=== PATIENT | female | born 1955 | race Caucasian/White ===

== ENCOUNTER 2018-10-12 22:44 | Emergency (ER) | payer BC, MEDICARE ==
[2018-10-12 23:17] VITALS: BP 110/59
--- NOTE | 2018-10-12 23:40 | RADIOLOGY REPORT (SQ) ---
EXAM DESCRIPTION: XR FOOT 3 OR MORE VIEWS COMPLETED DATE/TME: 10/12/2018 00:00 CLINICAL HISTORY: 63 years, Female, injury COMPARISON: None. NUMBER OF VIEWS: 3 TECHNIQUE: 3 view right foot LIMITATIONS: None. FINDINGS: Small calcaneal spurs. Negative for acute fracture or dislocation. IMPRESSION: No acute osseous abnormality 2010 [facility] [employer]- All Rights Reserved
[2018-10-13] MEDS ORDERED: ACETAMINOPHEN 325 MG TABLET PO ONE (01:03)
[2018-10-13] MEDS ORDERED: IBUPROFEN 600 MG TABLET PO ONE (01:03)
--- NOTE | 2018-10-13 01:03 | ER Document Report ---
ED General - General Chief Complaint: Foot Injury Stated Complaint: TOE INJURY Time Seen by Provider: 10/13/18 00:42 Notes: Patient is a 63-year-old female who presents emergency department after dropping a Marcia tree bar on her left foot. She said the area is sore. She did take Percocet that she got from her sister at home. She states walking on it makes the pain worse and resting makes the pain better. Percocet did not really help her all that much. She denies any blood thinners. Her only medical history includes hypertension medication. TRAVEL OUTSIDE OF THE [place] IN LAST 30 DAYS: No - Related Data Allergies/Adverse Reactions: Penicillins Allergy (Verified 10/13/18 01:10) Sulfa (Sulfonamide Antibiotics) Allergy (Verified 10/13/18 01:10) Past Medical History - Social History Smoking Status: Current Every Day Smoker Frequency of alcohol use: Rare Drug Abuse: None Lives with: Family Family History: Reviewed & Not Pertinent Review of Systems - Review of Systems Notes: REVIEW OF SYSTEMS: CONSTITUTIONAL : Denies recent illness. Denies recent unintentional weight loss. Denies fever, chills, or sweats. EENT: Denies eye, ear, throat, or mouth pain, discharge, or symptoms. Denies nasal or sinus congestion. CARDIOVASCULAR: Denies chest pain. RESPIRATORY: Denies shortness of breath, cough, congestion, difficulty breathing , or wheezing. GASTROINTESTINAL: Denies nausea, vomiting, and diarrhea. Denies abdominal pain. Denies constipation. GENITOURINARY: Denies difficulty urinating, burning, blood in urine, urgency or frequency. MUSCULOSKELETAL: See HPI SKIN: Denies rash, itchiness, or lesions HEMATOLOGIC : Denies easy bruising or bleeding. LYMPHATIC: Denies swollen, painful, enlarged glands. NEUROLOGICAL: Denies no numbness or tingling denies weakness. Denies headache. Denies altered mental status. Denies alteration in speech. PSYCHIATRIC: Denies stress, anxiety, alteration in sleep patterns, or depression. All other systems reviewed and negative. Physical Exam - Vital signs Vitals: Temp Pulse Resp BP Pulse Ox 97.8 F 78 20 110/59 L 96 10/12/18 23:14 10/12/18 23:14 10/12/18 23:14 10/12/18 23:14 10/12/18 23:14 - Notes Notes: PHYSICAL EXAMINATION: GENERAL: Appears well, healthy, well-nourished, no acute distress. HEAD: Normocephalic, atraumatic. EYES: PERRL, conjunctiva normal, all extraocular movements intact, sclera nonicteric ENT: Moist mucous membranes. NECK: Supple, no noticeable swelling, redness, rash. Normal range of motion. LUNGS: Equal breath sounds bilaterally and clear to auscultation. No wheezes rales or rhonchi. CARDIOVASCULAR: S1-S2, regular rate, regular rhythm. Radial pulses 2+, normal. ABDOMEN: Normoactive bowel sounds. Soft, nontender, no guarding, no rebound tenderness, and no masses palpated. EXTREMITIES: Patient is able to wiggle toes and press against resistance. Slight decreased range of motion to right foot. Mild ecchymosis noted to the dorsal and lateral aspect of right foot. No cyanosis. NEUROLOGICAL: Moves all extremities upon command. Strength 5/5 in all extremities. PSYCH: Normal mood, normal affect. SKIN: Warm, dry. No rash, lesions, ulcerations noted. Normal skin turgor. Course - Re-evaluation Re-evalutation: Patient's x-ray is negative. I do not suspect patient has any fractures at this time. She will be sent home on Motrin and Tylenol for pain control. She will also be sent home with a postop shoe for comfort. She refused crutches. Verbal discharge instructions were given to the patient, she verbalized understanding, and she is safe for discharge. - Vital Signs Vital signs: Temp Pulse Resp BP Pulse Ox 97.8 F 78 20 110/59 L 96 10/12/18 23:14 10/12/18 23:14 10/12/18 23:14 10/12/18 23:14 10/12/18 23:14 Discharge - Discharge Clinical Impression: Right foot pain Condition: Stable Disposition: HOME, SELF-CARE Additional Instructions: You have been seen in the emergency department for right foot pain. There is no fracture in your foot at this time. You most likely bruised the area from the bar that was dropped on your foot. You can take Motrin 600 mg and Tylenol 1000 mg as needed for the pain. You have also been sent home with extra pain medication, if you decide to take this medication do not take your Tylenol. You have also been sent home with a postop shoe to help with comfort. You may apply ice 20 minutes on 20 minutes off to help with the pain. Please elevate your foot and rest it. If you have worsening symptoms, or have any concerns that are worrisome to you, please return to the emergency department or follow- up with your primary care doctor.
[2018-10-13] MEDS ORDERED: HYDROCODONE/ACETAMINOPHEN 5-325 MG (6 TAB/ER DISP) PO PRN (01:07)
== END 2018-10-13 01:30 | disposition home or self-care (01) ==
LOC: ER 22:44
DX: S90.31XA Contusion of right foot, initial encounter (principal); M79.671 Pain in right foot; W20.8XXA Other cause of strike by thrown, projected or falling object, initial encounter; I10 Essential (primary) hypertension; Z79.899 Other long term (current) drug therapy; Z88.0 Allergy status to penicillin; Z88.2 Allergy status to sulfonamides
CPT/HCPCS: 99283; 73630; A9270 ×3

== ENCOUNTER 2019-07-14 08:34 | Emergency (ER) | payer MEDICARE, OTHER ==
[2019-07-14] MEDS ORDERED: LIDOCAINE 5% (700 MG) TRANSDERMAL ADH..PATCH TP ONE (09:15)
--- NOTE | 2019-07-14 09:20 | ER Document Report ---
HPI - HPI Time Seen by Provider: 07/14/19 09:07 Pain Level: 5 Context: Patient is a 64-year-old female presents to the emergency department with a chief complaint of right shoulder pain. Patient reports that over the past week she has been lifting the high in length of her dog as she is disabled. Patient reports that on Friday her dog was unable to bear any weight or stand on her own so she had to lift her and take her to the vet. Patient reports that at that ti me she noticed a snap come from her shoulder. Patient states her dogs weighs about 30 pounds. Patient reports it feels like an aching, throbbing that is worse with movement. Patient reports that she is having pain to the posterior right shoulder that radiates underneath the right axilla. Patient states she started using Robaxin yesterday with ibuprofen, Tylenol and cool compresses without relief. Patient reports in 1990 she did have a shoulder surgery with a had to rebuild pain muscle to the right shoulder. Patient denies numbness or tingling down the right arm. - CONSTITUTIONAL Constitutional: DENIES: Fever, Chills - MUSCULOSKELETAL Musculoskeletal: REPORTS: Extremity pain - R shoulder Past Medical History - General Information source: Patient - Social History Smoking Status: Current Every Day Smoker Frequency of alcohol use: None Drug Abuse: None Lives with: Family Family History: Reviewed & Not Pertinent Patient has suicidal ideation: No Patient has homicidal ideation: No - Past Medical History Cardiac Medical History: Reports: Hx Hypertension Pulmonary Medical History: Reports: None EENT Medical History: Reports: None Neurological Medical History: Reports: None Endocrine Medical History: Reports: None Renal/ Medical History: Reports: None. Denies: Hx Peritoneal Dialysis Malignancy Medical History: Reports: None GI Medical History: Reports: None Musculoskeletal Medical History: Reports None Skin Medical History: Reports None Psychiatric Medical History: Reports: None Traumatic Medical History: Reports: None Infectious Medical History: Reports: None Past Surgical History: Reports: Hx Orthopedic Surgery - R and L shoulder Vertical Provider Document - CONSTITUTIONAL Agree With Documented VS: Yes Exam Limitations: No Limitations General Appearance: No Apparent Distress - INFECTION CONTROL TRAVEL OUTSIDE OF THE [place] IN LAST 30 DAYS: No - HEENT HEENT: Atraumatic, Normocephalic, PERRLA - RESPIRATORY Respiratory: Breath Sounds Normal, No Respiratory Distress - CARDIOVASCULAR Cardiovascular: Regular Rate, Regular Rhythm - GI/ABDOMEN Gastrointestinal: Abdomen Soft, Abdomen Non-Tender, Normal Bowel Sounds - Sugar comments and iron - BACK Back: Normal Inspection - MUSCULOSKELETAL/EXTREMETIES Musculoskeletal/Extremeties: Tender, No Edema Notes: Patient has tenderness noted over the right scapula and right posterior shoulder. Patient is able to lift her right arm to the level of the right shoulder. Patient has a strong +2 right radial and brachial pulse. Patient has a strong data entry processor to the right hand and is able to make a fist. There is no tenderness noted to the inferior, lateral or anterior shoulder. There is no edema, ecchymosis, erythema noted. Tenderness noted with palpation underneath the right axilla and right lateral chest wall. - NEURO Level of Consciousness: Awake, Alert, Appropriate - DERM Integumentary: Warm, Dry, No Rash Course - Re-evaluation Re-evalutation: 07/14/19 09:20 Patient is driving. I will apply a lidocaine patch as well as a prescription for lidocaine. Patient to continue Robaxin and ibuprofen. Will obtain an x-ray to rule out any bony abnormality or dislocation. Ultimately I did tell the patient she may have to follow-up with orthopedics if her pain does not improve within the next week. - Vital Signs Vital signs: Temp Pulse Resp BP Pulse Ox 98.2 F 75 24 H 146/75 H 98 07/14/19 08:39 07/14/19 08:39 07/14/19 08:39 07/14/19 08:39 07/14/19 08:39 - Diagnostic Test Radiology reviewed: Reports reviewed Radiology results interpreted by me: 07/14/19 09:43 Shoulder X-Ray 07/14/19 09:15 IMPRESSION: NEGATIVE STUDY OF THE RIGHT SHOULDER. NO RADIOGRAPHIC EVIDENCE OF ACUTE INJURY. Discharge - Discharge Clinical Impression: Right shoulder pain Qualifiers: Chronicity: acute Qualified Code(s): M25.511 - Pain in right shoulder Right shoulder injury Qualifiers: Encounter type: initial encounter Qualified Code(s): S49.91XA - Unspecified injury of right shoulder and upper arm, initial encounter Condition: Stable Disposition: HOME, SELF-CARE Additional Instructions: Today you are seen the emergency department for right shoulder pain after an injury carrying her dog. We did obtain an x-ray which was negative for any acute bony abnormality to include dislocation and fracture. Usually this injury is from stretching and tearing of tendon strain trauma. Time and protection are required and order to heal properly. This can take a few weeks. Initial treatment includes cold compresses. Continue to use the Robaxin that your doctor has prescribed you as well as ibuprofen which is a good anti- inflammatory. I am giving you a prescription for lidocaine patches. If you do not feel better within the next few weeks I have given you referrals to multiple orthopedics in the area as you may have a more serious injury such as a rotator cuff injury. Please return to the emergency department if you develop severe pain, numbness down the right arm or loss of function. Shoulder Injury You have injured your shoulder. This usually results from stretching or tearing of the tendons during trauma. Time and protection are required in order to heal properly. Many injuries are quite disabling, and should be taken seriously. Initial treatment includes cold packs and a sling to rest the shoulder. The physician has assessed the seriousness of your injury, and has outlined a treatment plan. Understand that this treatment may change, depending on how you progress. If a re-examination was recommended, it is important that you follow up as instructed. Some shoulder injuries (such as partial tear of the rotator cuff) are only suspected after you've failed to improve. Call us if there's severe pain, numbness, or loss of function. Prescriptions: Lidocaine [Lidoderm 5% (700 mg) Transdermal Patch] 1 patch TP DAILY #10 adh..patch Forms: Return to Work Referrals: [facility] [Provider Group] - Follow up as needed CLEO CARLSON MD [ACTIVE PROVISIONAL STAFF] - Follow up as needed
--- NOTE | 2019-07-14 09:37 | RADIOLOGY REPORT (SQ) ---
EXAM DESCRIPTION: SHOULDER RIGHT 2 OR MORE VIEWS COMPLETED DATE/TIME: 07/14/2019 9:29 am REASON FOR STUDY: lifting dog injured right shoulder COMPARISON: None. NUMBER OF VIEWS: Three views. TECHNIQUE: Internal rotation, external rotation, and Y view images acquired of the right shoulder. LIMITATIONS: None. FINDINGS: MINERALIZATION: Normal. BONES: No acute fracture. No worrisome bone lesions. JOINTS: No dislocation. VISUALIZED LUNGS AND RIBS: No pneumothorax. No rib fracture. SOFT TISSUES: No radiopaque foreign body. OTHER: No other significant finding. IMPRESSION: NEGATIVE STUDY OF THE RIGHT SHOULDER. NO RADIOGRAPHIC EVIDENCE OF ACUTE INJURY. TECHNICAL DOCUMENTATION: JOB ID: [id number] [employer]- All Rights Reserved Reading location - IP/workstation name: [email or web address]
[2019-07-14 10:09] VITALS: BP 136/70
== END 2019-07-14 10:07 | disposition home or self-care (01) ==
LOC: ER 08:34
DX: S49.91XA Unspecified injury of right shoulder and upper arm, initial encounter (principal); M25.511 Pain in right shoulder; M79.601 Pain in right arm; X58.XXXA Exposure to other specified factors, initial encounter; Z79.899 Other long term (current) drug therapy; F17.200 Nicotine dependence, unspecified, uncomplicated; I10 Essential (primary) hypertension
CPT/HCPCS: 99283

== ENCOUNTER → 2019-07-29 | Outpatient (CLI) | payer MEDICARE, OTHER ==
[2019-07-29 10:27] LABS: ABSOLUTE BASOPHILS # (AUTO) 0.1 10^3/uL (0.0-0.2); ABSOLUTE EOSINOPHILS # (AUTO) 0.1 10^3/uL (0.0-0.6); ABSOLUTE LYMPHOCYTES (AUTO) 2.5 10^3/uL (0.5-4.7); ABSOLUTE MONOCYTES (AUTO) 0.7 10^3/uL (0.1-1.4); ABSOLUTE NEUT (AUTO) 6.1 10^3/uL (1.7-8.2); BASOPHILS % (AUTO) 0.7 % (0-2); HEMATOCRIT 38.4 % (36.0-47.0); LYMPHOCYTES % (AUTO) 26.1 % (13-45); MEAN CORPUSCULAR HEMOGLOBIN 33.7 pg (27.0-33.4); MEAN CORPUSCULAR HGB CONC 33.8 g/dL (32.0-36.0); MEAN CORPUSCULAR VOLUME 100 fl (80-97); MONOCYTES % (AUTO) 7.5 % (3-13); PLATELET COUNT 377 10^3/uL (150-450); RED BLOOD COUNT 3.84 10^6/uL (3.72-5.28); RED CELL DISTRIBUTION WIDTH 13.5 % (11.5-14.0); SEGMENTED NEUTROPHILS % (AUTO) 64.7 % (42-78); TOTAL CELLS COUNTED % (AUTO) 100 %; WHITE BLOOD COUNT 9.4 10^3/uL (4.0-10.5)
[2019-07-29 10:46] LABS: APPEARANCE,URINE CLEAR; BILIRUBIN,URINE NEGATIVE (NEGATIVE); COLOR,URINE YELLOW; GLUCOSE, URINE NEGATIVE (NEGATIVE); KETONES,URINE NEGATIVE (NEGATIVE); LEUKOCYTE ESTERASE,URINE NEGATIVE (NEGATIVE); NITRITE,URINE NEGATIVE (NEGATIVE); PROTEIN,URINE NEGATIVE (NEGATIVE); URINE SPECIFIC GRAVITY 1.017; UROBILINOGEN,URINE NEGATIVE mg/dL (<2.0)
[2019-07-29 10:48] LABS: ADD MANUAL MICROSCOPIC YES
[2019-07-29 10:52] LABS: ANION GAP 8 (5-19); BLOOD UREA NITROGEN 21 mg/dL (7-20); CALCIUM 9.3 mg/dL (8.4-10.2); CARBON DIOXIDE 29 mmol/L (22-30); CHLORIDE 103 mmol/L (98-107); GLUCOSE 80 mg/dL (75-110)
[2019-07-29 11:19] LABS: BACTERIA,URINE 2+ /HPF; RBC,URINE 0-1 /HPF; WBC,URINE 0-1 /HPF
--- NOTE | 2019-07-29 11:40 | RADIOLOGY REPORT (SQ) ---
EXAM DESCRIPTION: CHEST PA/LATERAL COMPLETED DATE/TIME: 07/29/2019 10:06 am REASON FOR STUDY: PRE-OP COMPARISON: None. EXAM PARAMETERS: NUMBER OF VIEWS: two views TECHNIQUE: Digital Frontal and Lateral radiographic views of the chest acquired. RADIATION DOSE: NA LIMITATIONS: none FINDINGS: LUNGS AND PLEURA: No opacities, masses or pneumothorax. No pleural effusion. MEDIASTINUM AND HILAR STRUCTURES: No masses or contour abnormalities. HEART AND VASCULAR STRUCTURES: Heart normal size. No evidence for failure. BONES: No acute findings. HARDWARE: None in the chest. OTHER: No other significant finding. IMPRESSION: NO SIGNIFICANT RADIOGRAPHIC FINDING IN THE CHEST. TECHNICAL DOCUMENTATION: JOB ID: [id number] [employer]- All Rights Reserved Reading location - IP/workstation name: [email or web address]
--- NOTE | 2019-07-30 08:55 | EKG REPORT ---
SEVERITY:- BORDERLINE ECG - SINUS RHYTHM PROBABLE LEFT ATRIAL ABNORMALITY : Confirmed by: Reva Reinoso MD 30-Jul-2019 08:54:03
== END ==
LOC: OD 09:31
PROVIDERS: ATTEND Orthopaedic Surgery
DX: M16.11 Unilateral primary osteoarthritis, right hip (principal); I10 Essential (primary) hypertension
CPT/HCPCS: 36415; 71046; 80048; 81001; 85025; 93005; 93010

== ENCOUNTER 2019-08-23 08:07 | Inpatient (IN) | payer MEDICARE, OTHER ==
[~2019-08-23 08:07] MED LIST: BUPIVACAINE INJ/PF LIPOSOME/PF 266 MG/20 ML SDV INJ PRN; CEFAZOLIN INJ 1 GM VIAL IV PRN; CLINDAMYCIN 600 MG/D5W RTU 600 MG/50 ML RTUPB IV ONE; IBUPROFEN 800 MG in NORMAL SALINE 250 ML IV PRN; LACTATED RINGERS 1000 ML IV PRN; OXYCODONE HCL SR 10 MG TABLET PO ONE; OXYCODONE HCL SR 10 MG TABLET PO PRN; PANTOPRAZOLE SODIUM 20 MG TABLET.DR PO ONE; PANTOPRAZOLE SODIUM 20 MG TABLET.DR PO PRN; VANCOMYCIN HCL 1,000 MG in DEXTROSE 5%-WATER 250 ML IV PRN
[2019-08-23] MEDS ORDERED: ONDANSETRON HCL INJ/PF 4 MG/2 ML SDV ONE (08:11)
[2019-08-23] MEDS ORDERED: FENTANYL CITRATE INJ/PF 100 MCG/2 ML AMPUL ONE (08:11)
[2019-08-23] MEDS ORDERED: MIDAZOLAM 2 MG/2 ML INJ ONE (08:11)
[2019-08-23] MEDS ORDERED: TRANEXAMIC ACID INJ/PF 1,000 MG/10 ML SDV ONE ×2 (08:12→14:52)
[2019-08-23] MEDS ORDERED: PROPOFOL INJ 200 MG/20 ML VIAL IV ONE (08:12)
[2019-08-23] MEDS: BUPIVACAINE HCL 0.5%-EPI 1:200000 INJ/PF 30 ML VIAL ONE ×2 (10:48→12:38)
[2019-08-23] MEDS ORDERED: FENTANYL CITRATE INJ/PF 100 MCG/2 ML AMPUL IV PRN ×3 (12:36)
[2019-08-23] MEDS ORDERED: MEPERIDINE HCL/PF INJ 25 MG/1 ML DISP.SYRIN IV PRN (12:36)
[2019-08-23] MEDS ORDERED: ONDANSETRON HCL INJ/PF 4 MG/2 ML SDV IV PRN ×2 (12:36→13:03)
[2019-08-23] MEDS ORDERED: MORPHINE SULFATE 10 MG/ML INJ IV PRN (12:36)
[2019-08-23] MEDS ORDERED: DIPHENHYDRAMINE HCL 50 MG/ML VIAL IV PRN ×2 (12:36→13:03)
--- NOTE | 2019-08-23 13:02 | Operative Report ---
Operative Report DATE OF SURGERY: 08/23/19 PREOPERATIVE DIAGNOSIS: Right hip arthritis OPERATION: Right hip arthroplasty SURGEON: LEXI MONTILLA ANESTHESIA: Spinal TISSUE REMOVED OR ALTERED: Femoral head to pathology ESTIMATED BLOOD LOSS: 75 PROCEDURE: Implants used: Femur: Peter Accolade 2 stem, size 5 Acetabular shell: 52 mm hemispherical shell Liner: 36 mm flat cross-link polyethylene liner Head: 86 mm chrome cobalt head -5 neck The patient is placed in a left lateral decubitus position on the operating table. The right lower extremity and hindquarter is prepped and draped in a sterile fashion. A curvilinear incision was made over the greater trochanter a posterior approach the hip was taken. The femoral head is dislocated and the femoral neck transected using an oscillating saw. Attention was next turned to the acetabulum. Soft tissues cleared off the acetabulum using electrocautery. The acetabulum was then prepared using a series of hemispherical reamers until a 52 millimeters reamer is seated. Subsequently a T2 millimeters Peter titanium hemispherical shell is impacted into position. A standard flat 36 millimeters cross-link liner is impacted into the shell. Attention was next turned to the femur. Access is gained to the femoral canal using a box osteotome to the piriformis fossa. The femur is then prepared using a series of broaches until a number 5 broach is seated. A trial reduction was now performed using a 36 millimeters head with -5 neck. Preoperative leg length was recreated and is excellent anterior posterior stability. A decision was made to proceed with the above construct. All trial implants were removed. The wound is irrigated with pulsed lavage. A number 5 stem is impacted into the femoral canal. A trial reduction was again performed with a 36 mm head and a -5 neck. Findings as previously. The hip was dislocated one last time and the final chrome-cobalt head is impacted onto the trunnion. The hip was reduced. Wound is copiously irrigated with pulsed lavage. Sent closed in layers using interrupted Vicryl followed by lou. A sterile dressing is applied and the patient's returned to recovery room in satisfactory patient.
[2019-08-23] MEDS ORDERED: RINGERS SOLUTION,LACTATED 1,000 ML IV PRN (13:03)
[2019-08-23] MEDS ORDERED: MAG HYDROX/AL HYDROX/SIMETH SUSP 30 ML UDCUP PO PRN (13:03)
[2019-08-23] MEDS ORDERED: ACETAMINOPHEN 325 MG TABLET PO PRN (13:03)
[2019-08-23] MEDS ORDERED: ZOLPIDEM TARTRATE 5 MG TABLET PO PRN (13:03)
[2019-08-23] MEDS ORDERED: ONDANSETRON 4 MG TAB.RAPDIS PO PRN (13:03)
--- NOTE | 2019-08-23 14:21 | RADIOLOGY REPORT (SQ) ---
EXAM DESCRIPTION: PELVIS AP COMPLETED DATE/TIME: 08/23/2019 2:07 pm REASON FOR STUDY: Post Op Long Cassette in PACU M16.11 UNILATERAL PRIMARY OSTEOARTHRITIS, RIGHT HI P COMPARISON: None. NUMBER OF VIEWS: One view TECHNIQUE: AP Pelvis LIMITATIONS: None. FINDINGS: Postop images show a right hip arthroplasty in good position. IMPRESSION: Right hip arthroplasty. Refer to operative note for further information. COMMENT: Pelvic fractures are often occult on plain radiographs. If strong clinical suspicion for f racture, recommend CT or MR. TECHNICAL DOCUMENTATION: JOB ID: [id number] [employer]- All Rights Reserved Reading location - IP/workstation name: [email or web address]
[2019-08-23] MEDS: SENNOSIDES/DOCUSATE 8.6-50 MG 1 EACH TABLET PO SCH (17:42)
[2019-08-23] MEDS: OXYCODONE HCL IR 5 MG TABLET PO PRN (17:52)
[2019-08-23] MEDS ORDERED: PREGABALIN 75 MG CAPSULE PO SCH (18:00)
[2019-08-23] MEDS: IBUPROFEN 800 MG in NORMAL SALINE 250 ML IV SCH (18:32)
[2019-08-23] MEDS: OXYCODONE HCL SR 10 MG TABLET PO SCH (21:40)
[2019-08-23] MEDS ORDERED: ROPINIROLE HCL 1 MG TABLET PO ONE (23:00)
[2019-08-23] MEDS ORDERED: GABAPENTIN 100 MG CAPSULE PO ONE (23:00)
[2019-08-23] MEDS: ROPINIROLE HCL 1 MG TABLET PO SCH (23:30)
[2019-08-24] MEDS ORDERED: VANCOMYCIN HCL 1,000 MG in DEXTROSE 5%-WATER 250 ML IV ONE (01:00)
[2019-08-24] MEDS: OXYCODONE HCL IR 5 MG TABLET PO PRN (01:02)
[2019-08-24] MEDS: IBUPROFEN 800 MG in NORMAL SALINE 250 ML IV SCH ×3 (01:03→18:48)
[2019-08-24] MEDS ORDERED: PANTOPRAZOLE SODIUM 40 MG TABLET.DR PO SCH (06:00)
[2019-08-24 06:58] LABS: HEMATOCRIT 35.4 % (36.0-47.0); HEMOGLOBIN 11.9 g/dL (12.0-15.5); MEAN CORPUSCULAR HEMOGLOBIN 33.9 pg (27.0-33.4); MEAN CORPUSCULAR HGB CONC 33.6 g/dL (32.0-36.0); MEAN CORPUSCULAR VOLUME 101 fl (80-97); PLATELET COUNT 270 10^3/uL (150-450); RED BLOOD COUNT 3.52 10^6/uL (3.72-5.28); RED CELL DISTRIBUTION WIDTH 13.5 % (11.5-14.0)
--- NOTE | 2019-08-24 07:09 | PDOC DISCHARGE SUMMARY ---
Impression - Admit/DC Date/PCP Admission Date/Primary Care Provider: 08/23/19 08:07 CHERRY LIMA MD Discharge Date: 08/24/19 - Additional Information Resuscitation Status: Full Code Discharge Diet: Regular Discharge Activity: No tub bath Referrals: LEXI MONTILLA MD [ACTIVE STAFF] - Home Medications: Ascorbic Acid [Vitamin C 500 mg Tablet] 500 mg PO DAILY 08/12/19 Cholecalciferol (Vitamin D3) [Vitamin D3 400 Unit Tablet] 1 tab PO DAILY 08/12/19 Cyanocobalamin (Vitamin B-12) [Vitamin B-12] 1,000 mcg PO DAILY 08/12/19 Esomeprazole Magnesium 40 mg PO DAILY 08/12/19 Fluticasone/Umeclidin/Vilanter [Trelegy 100-62.5-25 Mcg Ellipta 14 Dose/Dpi] 1 puff IN DAILY 08/12/19 Gabapentin [Neurontin 100 mg Capsule] 200 mg PO DAILY 08/12/19 Levocetirizine Dihydrochloride [Xyzal] 5 mg PO DAILY 08/12/19 Meloxicam [Mobic] 7.5 mg PO BID 08/12/19 Metronidazole/Skin Cleanser 23 [Rosadan 0.75% Cream Kit] 1 applic TOP PRN PRN 08/12/19 Ropinirole HCl [Requip] 1.5 mg PO DAILY 08/12/19 Valsartan 40 mg PO DAILY 08/12/19 History of Present Illiness History of Present Illness: LING MATUTE is a 64 year old female Patient is a 64-year-old white female with progressive right hip pain and functional disability second osteoarthritis. Patient is admitted for elective right hip arthroplasty. Hospital Course Hospital Course: Patient is admitted through the operating room where she undergoes unconjugated right hip arthroplasty. She is returned to floor in satisfactory condition. She makes excellent progress with physical therapy and weightbearing as tolerated basis on the day of surgery. Dressing remains clean dry and intact. Pain is well controlled. Patient ready for discharge on postop day 1. Physical Exam Vital Signs: Temp Pulse Resp BP Pulse Ox 36.8 C 77 18 113/73 95 08/24/19 00:36 08/24/19 00:36 08/24/19 00:36 08/24/19 00:36 08/24/19 00:36 Intake & Output 08/23/19 08/24/19 08/25/19 06:59 06:59 06:59 Intake Total 5659 Output Total 3059 Balance 2600 Weight 55.7 kg General appearance: PRESENT: no acute distress Head exam: PRESENT: normocephalic Respiratory exam: PRESENT: unlabored Cardiovascular exam: PRESENT: RRR Pulses: PRESENT: +1 pedal pulses bilateral Vascular exam: PRESENT: normal capillary refill GI/Abdominal exam: PRESENT: soft Rectal exam: PRESENT: deferred Musculoskeletal exam: PRESENT: other - Right hip dressing clean dry and intact. Leg lengths equal. Distal neurovascular examination is intact. Neurological exam: PRESENT: alert, awake, oriented to person, oriented to place, oriented to time, oriented to situation, CN II-XII grossly intact. ABSENT: motor sensory deficit Psychiatric exam: PRESENT: appropriate affect, normal mood. ABSENT: homicidal ideation, suicidal ideation Skin exam: PRESENT: dry, intact, warm. ABSENT: cyanosis, rash Results Laboratory Results: WBC 8.0 10^3/uL (4.0-10.5) 08/24/19 05:38 RBC 3.52 10^6/uL (3.72-5.28) L 08/24/19 05:38 Hgb 11.9 g/dL (12.0-15.5) L 08/24/19 05:38 Hct 35.4 % (36.0-47.0) L 08/24/19 05:38 MCV 101 fl (80-97) H 08/24/19 05:38 MCH 33.9 pg (27.0-33.4) H 08/24/19 05:38 MCHC 33.6 g/dL (32.0-36.0) 08/24/19 05:38 RDW 13.5 % (11.5-14.0) 08/24/19 05:38 Plt Count 270 10^3/uL (150-450) 08/24/19 05:38 Blood Type O POSITIVE 08/23/19 08:36 Antibody Screen NEGATIVE 08/23/19 08:36 Impressions: Pelvis X-Ray 08/23/19 13:05 IMPRESSION: Right hip arthroplasty. Refer to operative note for further information. Plan Plan of Treatment: Patient discharged home with home health services and DME. Patient is on a weightbearing as tolerated basis. Dressing can be changed on a as needed basis. Follow-up with Dr. [facility] for surgery in 2 weeks for staple removal. Stroke Is this a Stroke Patient?: Yes Stroke Pt being discharged on Anti-thrombolytic therapy?: Yes Acute Heart Failure - Is this a Heart Failure Patient?: No
[2019-08-24 07:28] LABS: BLOOD UREA NITROGEN 17 mg/dL (7-20); CALCIUM 8.6 mg/dL (8.4-10.2); CHLORIDE 104 mmol/L (98-107); GLUCOSE 85 mg/dL (75-110); POTASSIUM 4.2 mmol/L (3.6-5.0)
[2019-08-24 07:34] LABS: ANION GAP 5 (5-19); CARBON DIOXIDE 28 mmol/L (22-30)
[2019-08-24] MEDS: PREGABALIN 75 MG CAPSULE PO SCH ×2 (09:15→21:32)
[2019-08-24] MEDS: ASPIRIN 81 MG TABLET, ENT COATED PO SCH (09:15)
[2019-08-24] MEDS: ASCORBIC ACID 500 MG TABLET PO SCH (09:15)
[2019-08-24] MEDS: PANTOPRAZOLE SODIUM 40 MG TABLET.DR PO SCH (09:16)
[2019-08-24] MEDS: SENNOSIDES/DOCUSATE 8.6-50 MG 1 EACH TABLET PO SCH ×2 (09:16→18:49)
[2019-08-24] MEDS: PRENATAL VITAMIN W DHA CAPSULE PO SCH (09:16)
[2019-08-24] MEDS: CETIRIZINE 5 MG TABLET PO SCH (09:17)
[2019-08-24] MEDS: OXYCODONE HCL SR 10 MG TABLET PO SCH ×2 (09:17→21:30)
[2019-08-24] MEDS: VALSARTAN 40 MG TABLET PO SCH (09:20)
[2019-08-24] MEDS: CYANOCOBALAMIN (VITAMIN B-12) 1,000 MCG TABLET PO SCH (09:21)
[2019-08-24] MEDS: CHOLECALCIFEROL (D3) 400 UNIT TABLET PO SCH (09:21)
[2019-08-24] MEDS ORDERED: (PENDING PHARMACY ID) (Ropinirole Hcl [Requip] 1.5 MG) PO SCH (10:00)
[2019-08-24] MEDS ORDERED: GABAPENTIN 100 MG CAPSULE PO SCH (10:00)
[2019-08-24] MEDS ORDERED: ROPINIROLE HCL 1 MG TABLET PO SCH (10:00)
[2019-08-24] MEDS ORDERED: (PENDING PHARMACY ID) (Esomeprazole Magnesium [Esomeprazole Magnesium] 40 MG) PO SCH (10:00)
[2019-08-24] MEDS: ROPINIROLE HCL 1 MG TABLET PO SCH (21:31)
[2019-08-24] MEDS: GABAPENTIN 100 MG CAPSULE PO SCH (21:32)
[2019-08-25] MEDS: IBUPROFEN 800 MG in NORMAL SALINE 250 ML IV SCH ×2 (02:33→10:19)
--- NOTE | 2019-08-25 07:02 | PDOC PROGRESS REPORT ---
Subjective Progress Note for:: 08/25/19 Reason For Visit: M16.11 UNILATERAL PRIMARY OSTEOARTHRITIS, RIGHT HI 64-year-old white female postop day 2 status post right hip arthroplasty. Discharge yesterday was canceled because of episodes of hypotension and hypoxemia. Patient seems to be doing fine this morning. Social situation such that a decision has been made in conjunction with the patient that [place] [facility] facility placement would probably be more appropriate at this point then discharge home since she lives by herself. Physical Exam Vital Signs: Temp Pulse Resp BP Pulse Ox 37.1 C 76 18 117/54 L 98 08/25/19 00:00 08/25/19 00:00 08/25/19 00:00 08/25/19 00:00 08/25/19 00:00 Intake & Output 08/23/19 08/24/19 08/25/19 06:59 06:59 06:59 Intake Total 5909 2040 Output Total 3059 0 Balance 2850 2040 Weight 55.7 kg 56.8 kg Musculoskeletal exam: PRESENT: other - Right hip dressing clean dry and intact. Leg lengths are equal. Distal neurovascular examination is intact. Results Laboratory Results: 08/24/19 05:38 08/24/19 05:38 08/24/19 08/24/19 05:38 05:38 WBC 8.0 RBC 3.52 L Hgb 11.9 L Hct 35.4 L MCV 101 H MCH 33.9 H MCHC 33.6 RDW 13.5 Plt Count 270 Sodium 137.2 Potassium 4.2 Chloride 104 Carbon Dioxide 28 Anion Gap 5 BUN 17 Creatinine 0.57 Est GFR ( Amer) > 60 Glucose 85 Calcium 8.6 Impressions: Pelvis X-Ray 08/23/19 13:05 IMPRESSION: Right hip arthroplasty. Refer to operative note for further information. Status: Imported from PACS Assessment & Plan - Diagnosis (1) Arthritis of right hip Is this a current diagnosis for this admission?: Yes Plan: Continue to work with physical therapy and weightbearing as tolerated basis. - Time Time Spent with patient: 15-24 minutes Anticipated discharge: SNF Within: within 24 hours
[2019-08-25 08:06] LABS: HEMATOCRIT 30.8 % (36.0-47.0); HEMOGLOBIN 10.5 g/dL (12.0-15.5); MEAN CORPUSCULAR HEMOGLOBIN 34.5 pg (27.0-33.4); MEAN CORPUSCULAR HGB CONC 34.2 g/dL (32.0-36.0); MEAN CORPUSCULAR VOLUME 101 fl (80-97); PLATELET COUNT 268 10^3/uL (150-450); RED BLOOD COUNT 3.05 10^6/uL (3.72-5.28); RED CELL DISTRIBUTION WIDTH 13.3 % (11.5-14.0); WHITE BLOOD COUNT 9.5 10^3/uL (4.0-10.5)
[2019-08-25] MEDS ORDERED: FLUTICASONE/UMECLIDIN/VILANTER 100-62.5-25 MCG/DOSE IH SCH (10:00)
[2019-08-25] MEDS: CHOLECALCIFEROL (D3) 400 UNIT TABLET PO SCH (10:17)
[2019-08-25] MEDS: CYANOCOBALAMIN (VITAMIN B-12) 1,000 MCG TABLET PO SCH (10:18)
[2019-08-25] MEDS: CETIRIZINE 5 MG TABLET PO SCH (10:18)
[2019-08-25] MEDS: ASPIRIN 81 MG TABLET, ENT COATED PO SCH (10:20)
[2019-08-25] MEDS: PREGABALIN 75 MG CAPSULE PO SCH ×2 (10:20→22:34)
[2019-08-25] MEDS: VALSARTAN 40 MG TABLET PO SCH (10:21)
[2019-08-25] MEDS: OXYCODONE HCL SR 10 MG TABLET PO SCH (10:21)
[2019-08-25] MEDS: ASCORBIC ACID 500 MG TABLET PO SCH (10:23)
[2019-08-25] MEDS: PRENATAL VITAMIN W DHA CAPSULE PO SCH (10:24)
[2019-08-25] MEDS: SENNOSIDES/DOCUSATE 8.6-50 MG 1 EACH TABLET PO SCH ×2 (10:24→17:40)
[2019-08-25] MEDS: PANTOPRAZOLE SODIUM 40 MG TABLET.DR PO SCH (10:24)
[2019-08-25] MEDS: GABAPENTIN 100 MG CAPSULE PO SCH (22:33)
[2019-08-25] MEDS: ROPINIROLE HCL 1 MG TABLET PO SCH (22:43)
[2019-08-25] MEDS ORDERED: FLUTICASONE/UMECLIDIN/VILANTER 100-62.5-25 MCG/DOSE IH ONE (23:00)
[2019-08-26 05:36] LABS: HEMATOCRIT 30.4 % (36.0-47.0); HEMOGLOBIN 10.5 g/dL (12.0-15.5); MEAN CORPUSCULAR HEMOGLOBIN 34.4 pg (27.0-33.4); MEAN CORPUSCULAR HGB CONC 34.6 g/dL (32.0-36.0); MEAN CORPUSCULAR VOLUME 99 fl (80-97); PLATELET COUNT 280 10^3/uL (150-450); RED BLOOD COUNT 3.05 10^6/uL (3.72-5.28); RED CELL DISTRIBUTION WIDTH 12.9 % (11.5-14.0)
--- NOTE | 2019-08-26 06:53 | PDOC TRANSFER SUMMARY ---
Impression - Admit/DC Date/PCP Admission Date/Primary Care Provider: 08/23/19 08:07 CHERRY LIMA MD Discharge Date: 08/26/19 - Discharge Diagnosis (1) Arthritis of right hip Is this a current diagnosis for this admission?: Yes - Additional Information Resuscitation Status: Full Code Discharge Diet: Regular Discharge Activity: Balance Activity w/Rest, No tub bath Referrals: LEXI MONTILLA MD [ACTIVE STAFF] - 09/06/19 8:40 am Home Medications: Ascorbic Acid [Vitamin C 500 mg Tablet] 500 mg PO DAILY 08/12/19 Cholecalciferol (Vitamin D3) [Vitamin D3 400 Unit Tablet] 1 tab PO DAILY 08/12/19 Cyanocobalamin (Vitamin B-12) [Vitamin B-12] 1,000 mcg PO DAILY 08/12/19 Esomeprazole Magnesium 40 mg PO DAILY 08/12/19 Fluticasone/Umeclidin/Vilanter [Trelegy 100-62.5-25 Mcg Ellipta 14 Dose/Dpi] 1 puff IN DAILY 08/12/19 Gabapentin [Neurontin 100 mg Capsule] 200 mg PO DAILY 08/12/19 Levocetirizine Dihydrochloride [Xyzal] 5 mg PO DAILY 08/12/19 Meloxicam [Mobic] 7.5 mg PO BID 08/12/19 Metronidazole/Skin Cleanser 23 [Rosadan 0.75% Cream Kit] 1 applic TOP PRN PRN 08/12/19 Ropinirole HCl [Requip] 1.5 mg PO DAILY 08/12/19 Valsartan 40 mg PO DAILY 08/12/19 History of Present Illiness History of Present Illness: Patient is a 64-year-old white female with progressive right hip pain and functional disability second osteoarthritis patient is admitted for elective right hip arthroplasty. Hospital Course Hospital Course: Patient is admitted through the operating room where she undergoes unconjugated right hip arthroplasty. She is returned to floor in satisfactory condition. She makes excellent progress with physical therapy and weightbearing as tolerated basis on the day of surgery. Dressing remains clean dry and intact. Patient exhibits some hypoxia and hypotension initially and hence discharge has been held and a decision made to convert to a senior care facility discharge. In the interim since that decision the patient has remained afebrile with normotension and normoxia. Physical Exam Vital Signs: Temp Pulse Resp BP Pulse Ox 37.4 C 96 18 121/58 L 97 08/25/19 23:44 08/25/19 23:44 08/25/19 20:49 08/25/19 23:44 08/26/19 03:50 Intake & Output 08/24/19 08/25/19 08/26/19 06:59 06:59 06:59 Intake Total 5909 2040 1635 Output Total 3059 0 Balance 2850 2040 1635 Weight 55.7 kg 56.8 kg 56.7 kg General appearance: PRESENT: no acute distress, mild distress Head exam: PRESENT: normocephalic Respiratory exam: PRESENT: unlabored Cardiovascular exam: PRESENT: RRR Pulses: PRESENT: +1 pedal pulses bilateral GI/Abdominal exam: PRESENT: soft Rectal exam: PRESENT: deferred Musculoskeletal exam: PRESENT: other - Right hip dressing clean dry and intact. The small amount of ecchymosis about the distal third. There is minimal drainage. Leg lengths are equal. Distal neurovascular examination is intact. Neurological exam: PRESENT: alert, awake, oriented to person, oriented to place, oriented to time, oriented to situation. ABSENT: motor sensory deficit Psychiatric exam: PRESENT: appropriate affect, normal mood. ABSENT: homicidal ideation, suicidal ideation Skin exam: PRESENT: dry, intact, warm. ABSENT: cyanosis, rash Results Laboratory Results: WBC 9.0 10^3/uL (4.0-10.5) 08/26/19 05:00 RBC 3.05 10^6/uL (3.72-5.28) L 08/26/19 05:00 Hgb 10.5 g/dL (12.0-15.5) L 08/26/19 05:00 Hct 30.4 % (36.0-47.0) L 08/26/19 05:00 MCV 99 fl (80-97) H 08/26/19 05:00 MCH 34.4 pg (27.0-33.4) H 08/26/19 05:00 MCHC 34.6 g/dL (32.0-36.0) 08/26/19 05:00 RDW 12.9 % (11.5-14.0) 08/26/19 05:00 Plt Count 280 10^3/uL (150-450) 08/26/19 05:00 Sodium 137.2 mmol/L (137-145) 08/24/19 05:38 Potassium 4.2 mmol/L (3.6-5.0) 08/24/19 05:38 Chloride 104 mmol/L (98-107) 08/24/19 05:38 Carbon Dioxide 28 mmol/L (22-30) 08/24/19 05:38 Anion Gap 5 (5-19) 08/24/19 05:38 BUN 17 mg/dL (7-20) 08/24/19 05:38 Creatinine 0.57 mg/dL (0.52-1.25) 08/24/19 05:38 Est GFR ( Amer) > 60 (>60) 08/24/19 05:38 Est GFR (MDRD) Non-Af > 60 (>60) 08/24/19 05:38 Glucose 85 mg/dL (75-110) 08/24/19 05:38 Calcium 8.6 mg/dL (8.4-10.2) 08/24/19 05:38 Blood Type O POSITIVE 08/23/19 08:36 Antibody Screen NEGATIVE 08/23/19 08:36 Impressions: Pelvis X-Ray 08/23/19 13:05 IMPRESSION: Right hip arthroplasty. Refer to operative note for further information. Plan Plan of Treatment: Patient discharged to senior care facility. [facility] for dressing changes as needed. Physical therapy for weightbearing as tolerated ambulation. Follow-up with Dr. Montilla and [facility] for surgery in 2 weeks for staple removal. Time Spent: Less than 30 Minutes Stroke Is this a Stroke Patient?: No Stroke Pt being discharged on Anti-thrombolytic therapy?: Yes Acute Heart Failure - Is this a Heart Failure Patient?: No
[2019-08-26] MEDS: ASCORBIC ACID 500 MG TABLET PO SCH (10:27)
[2019-08-26] MEDS: VALSARTAN 40 MG TABLET PO SCH (10:27)
[2019-08-26] MEDS: ASPIRIN 81 MG TABLET, ENT COATED PO SCH (10:27)
[2019-08-26] MEDS: PANTOPRAZOLE SODIUM 40 MG TABLET.DR PO SCH (10:27)
[2019-08-26] MEDS: PREGABALIN 75 MG CAPSULE PO SCH (10:27)
[2019-08-26] MEDS: OXYCODONE HCL IR 5 MG TABLET PO PRN (10:27)
[2019-08-26] MEDS: PRENATAL VITAMIN W DHA CAPSULE PO SCH (10:27)
[2019-08-26] MEDS: CHOLECALCIFEROL (D3) 400 UNIT TABLET PO SCH (10:28)
[2019-08-26] MEDS: SENNOSIDES/DOCUSATE 8.6-50 MG 1 EACH TABLET PO SCH ×2 (10:28→17:30)
[2019-08-26] MEDS: CYANOCOBALAMIN (VITAMIN B-12) 1,000 MCG TABLET PO SCH (10:28)
[2019-08-26] MEDS: CETIRIZINE 5 MG TABLET PO SCH (10:28)
[2019-08-26 16:41] VITALS: BP 106/57
[2019-08-26] MEDS ORDERED: FLUTICASONE/UMECLIDIN/VILANTER 100-62.5-25 MCG/DOSE IH SCH (22:00)
== END 2019-08-26 19:17 | DRG 470 ==
LOC: INOR 08:07 → 4W 16:19
PROVIDERS: ADMIT Orthopaedic Surgery; ATTEND Orthopaedic Surgery
PROC: 0SR902A Replacement of Right Hip Joint with Metal on Polyethylene Synthetic Substitute, Uncemented, Open Approach (ICD-10-PCS; principal; 2019-08-23 11:15)
DX: M16.11 Unilateral primary osteoarthritis, right hip (principal); I10 Essential (primary) hypertension; J43.9 Emphysema, unspecified; F17.210 Nicotine dependence, cigarettes, uncomplicated; K21.9 Gastro-esophageal reflux disease without esophagitis; Z79.899 Other long term (current) drug therapy; Z88.0 Allergy status to penicillin; Z88.2 Allergy status to sulfonamides
CPT/HCPCS: 01214; 36415; 72170; 80048; 85027; 86850; 86900; 86901; 88304; 88311; 94799; C1776; J1741; J2250; J2405; J2704; J3010; J3370; J3490; J7050; J7060

== ENCOUNTER 2019-10-02 09:06 | Emergency (ER) | payer MEDICARE, OTHER ==
--- NOTE | 2019-10-02 09:34 | ER Document Report ---
ED Medical Screen (RME) - General Chief Complaint: Jaw Pain Stated Complaint: LEFT SIDE JAW PAIN Time Seen by Provider: 10/02/19 09:28 Primary Care Provider: CHERRY LIMA MD [Primary Care Provider] - Follow up as needed Mode of Arrival: Ambulatory Information source: Patient Notes: This 64-year-old female presents today with complaints of left-sided jaw pain that radiates down her left side of her neck. Reports symptoms started a couple days ago. Denies dental pain.. Reports it does not hurt when she chews. Does have history of high blood pressure. Denies fever nausea vomiting diarrhea. Denies shortness of breath. Denies chest pain. Patient reports the pain started in her jaw went up to her ear and now is going down the left side of her neck. Positive smoker denies CAD. Had surgery August 23 for hip replacement by Dr. Guadarrama. I have greeted and performed a rapid initial assessment of this patient. A comprehensive ED assessment and evaluation of the patient, analysis of test results and completion of the medical decision making process will be conducted by additional ED providers. Dictation of this chart was performed using voice recognition software; therefore, there may be some unintended grammatical errors. TRAVEL OUTSIDE OF THE [place] IN LAST 30 DAYS: No - Related Data Allergies/Adverse Reactions: Penicillins Allergy (Verified 10/02/19 09:21) Sulfa (Sulfonamide Antibiotics) Allergy (Verified 10/02/19 09:21) Past Medical History - Social History Chew tobacco use (# tins/day): No Frequency of alcohol use: None Drug Abuse: None - Past Medical History Cardiac Medical History: Reports: Hx Hypertension Denies: Hx Atrial Fibrillation, Hx Congestive Heart Failure, Hx Coronary Artery Disease, Hx Heart Attack, Hx Hypercholesterolemia, Hx Peripheral Vascular Disease, Hx Pulmonary Embolism, Hx Heart Murmur Pulmonary Medical History: Reports: Hx COPD Denies: Hx Asthma, Hx Bronchitis, Hx Pneumonia, Hx Respiratory Failure, Hx Sleep Apnea, Hx Tuberculosis Neurological Medical History: Denies: Hx Cerebrovascular Accident, Hx Seizures Endocrine Medical History: Denies: Hx Hyperthyroidism, Hx Hypothyroidism Renal/ Medical History: Denies: Hx Kidney Stones, Hx Peritoneal Dialysis Malignancy Medical History: Denies: Hx Lung Cancer GI Medical History: Denies: Hx Gastroesophageal Reflux Disease Musculoskeltal Medical History: Reports Hx Arthritis, Denies Hx Fibromyalgia, Denies Hx Muscular Dystrophy Psychiatric Medical History: Denies: Hx Bipolar Disorder, Hx Post Traumatic Stress Disorder Traumatic Medical History: Reports: Hx Fractures - toes Past Surgical History: Reports: Hx Orthopedic Surgery - R and L shoulder, Hx Tubal Ligation. Denies: Hx Appendectomy, Hx Bowel Surgery, Hx Section, Hx Cholecystectomy, Hx Coronary Artery Bypass Graft, Hx Gastric Bypass Surgery, Hx Herniorrhaphy, Hx Hysterectomy, Hx Mastectomy, Hx Pacemaker, Hx Tonsillectomy Physical Exam - Vital signs Vitals: Temp Pulse Resp BP Pulse Ox 98.3 F 97 18 138/69 H 95 10/02/19 09:10 10/02/19 09:10 10/02/19 09:10 10/02/19 09:10 10/02/19 09:10 Course - Vital Signs Vital signs: Temp Pulse Resp BP Pulse Ox 98.3 F 97 18 138/69 H 95 10/02/19 09:10 10/02/19 09:10 10/02/19 09:10 10/02/19 09:10 10/02/19 09:10 Doctor's Discharge - Discharge Referrals: CHERRY LIMA MD [Primary Care Provider] - Follow up as needed
--- NOTE | 2019-10-02 10:19 | RADIOLOGY REPORT (SQ) ---
EXAM DESCRIPTION: CHEST 2 VIEWS COMPLETED DATE/TIME: 10/02/2019 9:57 am REASON FOR STUDY: jaw pain, right side COMPARISON: Two-view chest 07/29/2019 EXAM PARAMETERS: NUMBER OF VIEWS: two views TECHNIQUE: Digital Frontal and Lateral radiographic views of the chest acquired. RADIATION DOSE: NA LIMITATIONS: none FINDINGS: LUNGS AND PLEURA: Lungs are hyperinflated from obstructive disease. No acute infiltrates. No pleural effusion or pneumothorax. MEDIASTINUM AND HILAR STRUCTURES: No masses or contour abnormalities. HEART AND VASCULAR STRUCTURES: Heart normal size. No evidence for failure. BONES: No acute findings. HARDWARE: None in the chest. OTHER: No other significant finding. IMPRESSION: Obstructive lung disease. No acute infiltrates. TECHNICAL DOCUMENTATION: JOB ID: [id number] [employer]- All Rights Reserved Reading location - IP/workstation name: [email or web address]
[2019-10-02 10:37] LABS: ABSOLUTE BASOPHILS # (AUTO) 0.1 10^3/uL (0.0-0.2); ABSOLUTE EOSINOPHILS # (AUTO) 0.1 10^3/uL (0.0-0.6); ABSOLUTE LYMPHOCYTES (AUTO) 1.8 10^3/uL (0.5-4.7); ABSOLUTE MONOCYTES (AUTO) 0.4 10^3/uL (0.1-1.4); ABSOLUTE NEUT (AUTO) 5.4 10^3/uL (1.7-8.2); BASOPHILS % (AUTO) 0.8 % (0-2); EOSINOPHILS % (AUTO) 1.9 % (0-6); HEMATOCRIT 40.4 % (36.0-47.0); HEMOGLOBIN 13.8 g/dL (12.0-15.5); LYMPHOCYTES % (AUTO) 22.7 % (13-45); MEAN CORPUSCULAR HEMOGLOBIN 34.3 pg (27.0-33.4); MEAN CORPUSCULAR HGB CONC 34.3 g/dL (32.0-36.0); MEAN CORPUSCULAR VOLUME 100 fl (80-97); MONOCYTES % (AUTO) 5.4 % (3-13); PLATELET COUNT 393 10^3/uL (150-450); RED BLOOD COUNT 4.03 10^6/uL (3.72-5.28); RED CELL DISTRIBUTION WIDTH 13.5 % (11.5-14.0); SEGMENTED NEUTROPHILS % (AUTO) 69.2 % (42-78); TOTAL CELLS COUNTED % (AUTO) 100 %; WHITE BLOOD COUNT 7.7 10^3/uL (4.0-10.5)
[2019-10-02 10:47] LABS: ALBUMIN 4.3 g/dL (3.5-5.0); ALKALINE PHOSPHATASE 70 U/L (38-126); ANION GAP 8 (5-19); ASPARTATE AMINO TRANSFERASE 17 U/L (14-36); BILIRUBIN,DIRECT 0.1 mg/dL (0.0-0.4); BILIRUBIN,TOTAL 0.3 mg/dL (0.2-1.3); BLOOD UREA NITROGEN 18 mg/dL (7-20); CALCIUM 10.2 mg/dL (8.4-10.2); CARBON DIOXIDE 27 mmol/L (22-30); CHLORIDE 107 mmol/L (98-107); CREATINE KINASE 21 U/L (30-135); GLUCOSE 89 mg/dL (75-110); POTASSIUM 4.5 mmol/L (3.6-5.0); TOTAL PROTEIN 7.4 g/dL (6.3-8.2)
[2019-10-02] MEDS ORDERED: KETOROLAC TROMETHAMINE INJ/PF 30 MG/1 ML SDV IV ONE (10:48)
--- NOTE | 2019-10-02 11:51 | EKG REPORT ---
SEVERITY:- NORMAL ECG - SINUS RHYTHM : Confirmed by: Reva Reinoso MD 02-Oct-2019 11:50:33
--- NOTE | 2019-10-02 12:07 | RADIOLOGY REPORT (SQ) ---
EXAM DESCRIPTION: CT SOFT TISSUE NECK WITH COMPLETED DATE/TIME: 10/02/2019 11:13 am REASON FOR STUDY: left jaw and neck pain COMPARISON: Two-view chest 10/02/2019 TECHNIQUE: Post IV contrasted scanning from skull base through lung apices with review of bone, soft tissue and lung windows. Reconstructed coronal and sagittal MPR images reviewed. All images stored on PACS. All CT scanners at this facility use dose modulation, iterative reconstruction, and/or weight based d osing when appropriate to reduce radiation dose to as low as reasonably achievable (ALARA). [facility]: Dose Right [facility]: CareDose [facility]: Dose Right [facility]: Teradose 4D [facility]: TriCipher CONTRAST TYPE AND DOSE: contrast/concentration: Isovue 350.00 mg/ml; Total Contrast Delivered: 75.0 ml; Total Saline Delivered: 55.0 ml RENAL FUNCTION: Creatinine 0.6 RADIATION DOSE: CT Rad equipment meets quality standard of care and radiation dose reduction techniq ues were employed. CTDIvol: 9.6 mGy. DLP: 306 mGy-cm. . LIMITATIONS: None. FINDINGS: SKULL BASE: Inferior brain parenchyma in the field of view unremarkable. Normal enhanceme nt [place] vessels no CT evidence of carotid dissection or MAJOR SALIVARY GLANDS: No solid or cystic masses. No inflammatory changes. LYMPHADENOPATHY: No adenopathy. MUCOSAL MASSES OR ASYMMETRY: No mucosal masses or asymmetry. LARYNX/CORDS: No abnormal findings. VASCULAR STRUCTURES: The major vessels are patent. No CT evidence of carotid dissection, fibromuscul ar dysplasia or abnormal carotid vessel wall thickening. Minimal atherosclerotic change at the carot id bifurcations without flow significant stenosis. No vertebral artery dissection. LUNG APICES: Obstructive lung disease BONES: Diffuse degenerative change in the cervical spine with multilevel foraminal narrowing at C3-4, C4-5, C5-6, at C6-7. No mandible or facial fractures. THYROID: Normal size. No masses. PARANASAL SINUSES: Clear. OTHER: Along the posterior aspect of the right shoulder in the subcutaneous fat, a low-density well-c ircumscribed lobular subcutaneous nodule is present 2.5 x 2 cm in size. This could represent a sebac eous cyst. Lymph node is possible. IMPRESSION: Degenerative changes cervical spine. No CT evidence of left carotid dissection or vertebral artery dissection TECHNICAL DOCUMENTATION: JOB ID: [id number] Quality ID # [id number]: Final reports with documentation of one or more dose reduction techniques (e.g., Au tomated exposure control, adjustment of the mA and/or kV according to patient size, use of iterative reconstruction technique) 2010 [employer]- All Rights Reserved Reading location - IP/workstation name: [email or web address]
[2019-10-02 13:19] VITALS: BP 132/85
--- NOTE | 2019-10-04 13:40 | ER Document Report ---
Entered by BINDU TOBIAS SCRIBE 10/02/19 1108 Acting as scribe for:LEXI JOHANSEN IV, MD ED General - General Chief Complaint: Jaw Pain Stated Complaint: LEFT SIDE JAW PAIN Time Seen by Provider: 10/02/19 09:28 Primary Care Provider: CHERRY LIMA MD [Primary Care Provider] - 10/04/19 Mode of Arrival: Ambulatory Information source: Patient Notes: 64-year-old female that presents to the emergency department today with complaints of left-sided jaw pain with associated swelling for the last three days. Patient states the pain radiates from her jaw into her forehead and maxillary sinus area. Pertinent PMHx/PSHx: Poor dental hygiene PCP: Dr. Tierney TRAVEL OUTSIDE OF THE [place] IN LAST 30 DAYS: No - Related Data Allergies/Adverse Reactions: Penicillins Allergy (Verified 10/02/19 09:21) Sulfa (Sulfonamide Antibiotics) Allergy (Verified 10/02/19 09:21) Past Medical History - General Information source: Patient - Social History Smoking Status: Current Every Day Smoker Cigarette use (# per day): Yes Chew tobacco use (# tins/day): No Frequency of alcohol use: None Drug Abuse: None Lives with: Family Family History: Reviewed & Not Pertinent Patient has suicidal ideation: No Patient has homicidal ideation: No - Past Medical History Cardiac Medical History: Reports: Hx Hypertension Pulmonary Medical History: Reports: Hx COPD Musculoskeletal Medical History: Reports Hx Arthritis Traumatic Medical History: Reports: Hx Fractures - toes Past Surgical History: Reports: Hx Orthopedic Surgery - R and L shoulder, Hx Tubal Ligation Review of Systems - Review of Systems Constitutional: No symptoms reported EENT: See HPI, Mouth pain, Mouth swelling Cardiovascular: No symptoms reported Respiratory: No symptoms reported Gastrointestinal: No symptoms reported Genitourinary: No symptoms reported Female Genitourinary: No symptoms reported Musculoskeletal: No symptoms reported Skin: No symptoms reported Hematologic/Lymphatic: No symptoms reported Neurological/Psychological: No symptoms reported -: Yes All other systems reviewed and negative Physical Exam - Vital signs Vitals: Temp Pulse Resp BP Pulse Ox 98.3 F 97 18 138/69 H 95 10/02/19 09:10 10/02/19 09:10 10/02/19 09:10 10/02/19 09:10 10/02/19 09:10 - Notes Notes: PHYSICAL EXAMINATION: GENERAL: Well-appearing, well-nourished and in no acute distress. HEAD: Atraumatic, normocephalic. EYES: Pupils equal round and reactive to light, extraocular movements intact, sclera anicteric, conjunctiva are normal. ENT: Clear effusion present behind left TM. There is no facial asymmetry. Patient has generalized poor dentition. Patient has tenderness to palpation on the inner buccal surface of tooth number 19. no pointing, no discharge noted at gingival line. NECK: Normal range of motion, supple without lymphadenopathy. no carotid bruits. LUNGS: Breath sounds clear to auscultation bilaterally and equal. No wheezes rales or rhonchi. HEART: Regular rate and rhythm without murmurs ABDOMEN: Soft, nontender, normoactive bowel sounds. No guarding, no rebound. No masses appreciated. EXTREMITIES: Normal range of motion, no pitting or edema. No cyanosis. NEUROLOGICAL: No focal neurological deficits. Moves all extremities spontaneously and on command. PSYCH: Normal mood, normal affect. SKIN: Warm, Dry, normal turgor, no rashes or lesions noted. Course - Vital Signs Vital signs: Temp Pulse Resp BP Pulse Ox 98.3 F 97 18 138/69 H 95 10/02/19 09:10 10/02/19 09:10 10/02/19 09:10 10/02/19 09:10 10/02/19 09:10 - Laboratory Result Diagrams: 10/02/19 10:08 10/02/19 10:08 Laboratory results interpreted by me: 10/02/19 10/02/19 10:08 10:08 MCV 100 H MCH 34.3 H Creatine Kinase 21 L - Diagnostic Test Radiology reviewed: Reports reviewed - EKG Interpretation by Me Additional EKG results interpreted by me: 10/02/19 12:51 EKG performed on 09/01/2019 at 093 9 hours was interpreted by this MD. Findings: Normal sinus rhythm, rate 87 normal axis, pes preceding QRS complexes, narrow QRS complex, no ST elevation or depression appreciated to suggest myocardial ischemia or infarction. Impression normal sinus rhythm with no acute findings. Discharge - Discharge Clinical Impression: Jaw pain, non-TMJ Condition: Good Disposition: HOME, SELF-CARE Instructions: Dental Infection or Abscess ([facility]) Additional Instructions: Return to the Emergency Department without delay if any worse. Prescriptions: Clindamycin HCl [Cleocin 150 mg Capsule] 450 mg PO TID 10 Days #90 capsule Hydrocodone/Acetaminophen [Vicodin 5-300 mg Tablet] 1 each PO Q6H PRN 5 Days #20 tablet PRN Reason: Severe Pain Referrals: CHERRY LIMA MD [Primary Care Provider] - 10/04/19 I personally performed the services described in the documentation, reviewed and edited the documentation which was dictated to the scribe in my presence, and it accurately records my words and actions.
== END 2019-10-02 13:19 | disposition home or self-care (01) ==
LOC: ER 09:06
DX: R68.84 Jaw pain (principal); I10 Essential (primary) hypertension; Z88.0 Allergy status to penicillin; Z88.2 Allergy status to sulfonamides; Z96.649 Presence of unspecified artificial hip joint; Z98.51 Tubal ligation status
CPT/HCPCS: 93005; 36415; 82550; 85025; 80053; 84484; 71046; 70491; 93010; J1885

== ENCOUNTER 2019-11-07 08:38 | Emergency (ER) | payer MEDICARE, OTHER ==
[2019-11-07] MEDS ORDERED: MECLIZINE HCL 25 MG TABLET PO ONE (09:45)
--- NOTE | 2019-11-07 09:51 | ER Document Report ---
ED General - General Chief Complaint: Dizziness Stated Complaint: DIZZINESS Time Seen by Provider: 11/07/19 08:58 Primary Care Provider: CHERRY LIMA MD [Primary Care Provider] - Follow up as needed TRAVEL OUTSIDE OF THE [place] IN LAST 30 DAYS: No - HPI Notes: 64-year-old female presenting with a chief complaint of vertigo. Patient states that she had sudden onset of vertigo for the first time last night. She was moving from a sitting to a standing position when she suddenly felt unsteady on her feet drifting to one side. She had a sensation of the room spinning or tu rning. This was associated with nausea on accompanied by vomiting. Slight dull headache at that time. This lasted for less than 1 minute. She has had several similar episodes overnight and continuing today generally with changing position. She denies any difficulty with speech, swallowing or eyesight. She denies any focal weakness or any paresthesias. She denies any past history of stroke or TIA. Patient smokes three quarters of pack of cigarettes per day. She has a history of hypertension. She is not diabetic. She denies any history of head injury. - Related Data Allergies/Adverse Reactions: Penicillins Allergy (Verified 10/02/19 09:21) Sulfa (Sulfonamide Antibiotics) Allergy (Verified 10/02/19 09:21) Home Medications: Valsartan, esomperazole, meloxicam, d3, b12, Cc, Methocarban, gabapentin, trelagy Past Medical History - General Information source: Patient - Social History Smoking Status: Current Every Day Smoker Frequency of alcohol use: Rare Lives with: Family Family History: Reviewed & Not Pertinent Patient has suicidal ideation: No Patient has homicidal ideation: No - Past Medical History Cardiac Medical History: Reports: Hx Hypertension Denies: Hx Atrial Fibrillation, Hx Congestive Heart Failure, Hx Coronary Artery Disease, Hx Heart Attack, Hx Hypercholesterolemia, Hx Peripheral Vascular Disease, Hx Pulmonary Embolism, Hx Heart Murmur Pulmonary Medical History: Reports: Hx COPD Denies: Hx Asthma, Hx Bronchitis, Hx Pneumonia, Hx Respiratory Failure, Hx Sleep Apnea, Hx Tuberculosis Neurological Medical History: Denies: Hx Cerebrovascular Accident, Hx Seizures Endocrine Medical History: Denies: Hx Hyperthyroidism, Hx Hypothyroidism Renal/ Medical History: Denies: Hx Kidney Stones, Hx Peritoneal Dialysis Malignancy Medical History: Denies: Hx Lung Cancer GI Medical History: Denies: Hx Gastroesophageal Reflux Disease Musculoskeletal Medical History: Reports Hx Arthritis, Denies Hx Fibromyalgia, Denies Hx Muscular Dystrophy Psychiatric Medical History: Denies: Hx Bipolar Disorder, Hx Post Traumatic Stress Disorder Traumatic Medical History: Reports: Hx Fractures - toes Past Surgical History: Reports: Hx Orthopedic Surgery - R and L shoulder, Hx Tubal Ligation, Other - Right hip replacement earlier this year. Denies: Hx Appendectomy, Hx Bowel Surgery, Hx Section, Hx Cholecystectomy, Hx Coronary Artery Bypass Graft, Hx Gastric Bypass Surgery, Hx Herniorrhaphy, Hx Hysterectomy, Hx Mastectomy, Hx Pacemaker, Hx Tonsillectomy Review of Systems - Review of Systems Notes: Constitutional: Negative for fever. HENT: Negative for sore throat. Eyes: Negative for visual changes. Cardiovascular: Negative for chest pain. Respiratory: Negative for shortness of breath. Gastrointestinal: Negative for abdominal pain, vomiting or diarrhea. Genitourinary: Negative for dysuria. Musculoskeletal: Negative for back pain. Skin: Negative for rash. Neurological: As per HPI . 10 point ROS negative except as marked above and in HPI. Physical Exam - Vital signs Vitals: Temp Pulse Resp BP Pulse Ox 98.1 F 88 16 141/75 H 99 11/07/19 08:41 11/07/19 08:41 11/07/19 08:41 11/07/19 08:41 11/07/19 08:41 - Notes Notes: GENERAL: Well-developed well-nourished appearing in no acute distress. SKIN: Good turgor no rashes. HEAD: Normocephalic atraumatic. EYES: PERRLA. EOMI. mild nystagmus on lateral gaze to either side. Conjunctivae and sclerae clear. EARS: CANALS AND TMS CLEAR. NOSE: CLEAR. MOUTH: Moist mucosa. Good dentition. No stridor or edema. No drooling. NECK: Supple. No masses or thyromegaly. No adenopathy. Carotids 2+ without bruits. No JVD. BACK: Symmetrical without tenderness. CHEST: Respirations unlabored. Breath sounds clear and symmetrical. HEART: Regular rhythm. No murmur gallop or rub. ABDOMEN: Soft nontender without masses, organomegaly or rebound. Bowel sounds normally active. No bruits. GENITALIA: Deferred. EXTREMITIES: Moderate degenerative changes in her phalangeal joints both hands. No edema. No calf tenderness. Cap refill less than 1.5 seconds. Dorsalis pedis and posterior tibial pulses 3+ and symmetrical. NEUROLOGICAL: GCS 15. Alert and oriented x3. Normal gait. Fluent speech. Cranial nerves II through XII intact. Sensorimotor and cerebellar normal. Normal tone. PSYCHIATRIC: Appropriate affect. Course - Re-evaluation Re-evalutation: 11/07/19 09:51 We will check labs to include CBC and basic metabolic profile. We will also get an EKG and a noncontrast head CT. I am going to treat patient with oral meclizi ne. Suspect this is peripheral vertigo. 11/07/19 12:22 Minimal change in symptoms with administration of meclizine. Normal head CT. EKG and labs are unremarkable. Findings most consistent with peripheral vertigo probably due to vestibular neuronitis. We discussed options for treatment and agree on low-dose benzodiazepine. Recommend follow-up with primary care doctor within the next 1 week. Patient states she fully understands my explanation of her current clinical situation and recommendations for treatment. - Vital Signs Vital signs: Temp Pulse Resp BP Pulse Ox 98.1 F 88 16 141/75 H 99 11/07/19 08:59 11/07/19 08:41 11/07/19 08:59 11/07/19 08:41 11/07/19 08:59 - Laboratory Result Diagrams: 11/07/19 09:24 11/07/19 09:24 Laboratory results interpreted by me: 11/07/19 11/07/19 09:24 09:24 MCV 101 H MCH 33.8 H BUN 21 H - Diagnostic Test Radiology results interpreted by me: 11/07/19 12:[address] reported as normal by radiologist. - EKG Interpretation by Me Additional EKG results interpreted by me: 11/07/19 12:20 Normal sinus rhythm. Rate 78. Normal axis. Nonspecific T wave changes. Discharge - Discharge Clinical Impression: Acute vestibular neuronitis Qualifiers: Laterality: unspecified laterality Qualified Code(s): H81.20 - Vestibular neuronitis, unspecified ear Condition: Stable Disposition: HOME, SELF-CARE Instructions: Vertigo ([facility]) Additional Instructions: Return here as needed for new or worsening symptoms: Pain that is worsening or unimproved Uncontrolled vomiting High fever or shaking chills Overall worsening Prescriptions: Diazepam [Valium 2 mg Tablet] 2 mg PO Q6HP PRN #15 tablet PRN Reason: Referrals: CHERRY LIMA MD [Primary Care Provider] - Follow up as needed
[2019-11-07 10:15] LABS: ABSOLUTE BASOPHILS # (AUTO) 0.1 10^3/uL (0.0-0.2); ABSOLUTE EOSINOPHILS # (AUTO) 0.2 10^3/uL (0.0-0.6); ABSOLUTE LYMPHOCYTES (AUTO) 1.6 10^3/uL (0.5-4.7); ABSOLUTE MONOCYTES (AUTO) 0.4 10^3/uL (0.1-1.4); ABSOLUTE NEUT (AUTO) 6.1 10^3/uL (1.7-8.2); BASOPHILS % (AUTO) 0.9 % (0-2); EOSINOPHILS % (AUTO) 1.9 % (0-6); HEMATOCRIT 40.9 % (36.0-47.0); HEMOGLOBIN 13.7 g/dL (12.0-15.5); LYMPHOCYTES % (AUTO) 19.4 % (13-45); MEAN CORPUSCULAR HEMOGLOBIN 33.8 pg (27.0-33.4); MEAN CORPUSCULAR HGB CONC 33.6 g/dL (32.0-36.0); MEAN CORPUSCULAR VOLUME 101 fl (80-97); MONOCYTES % (AUTO) 5.1 % (3-13); PLATELET COUNT 355 10^3/uL (150-450); RED BLOOD COUNT 4.07 10^6/uL (3.72-5.28); RED CELL DISTRIBUTION WIDTH 13.7 % (11.5-14.0); SEGMENTED NEUTROPHILS % (AUTO) 72.7 % (42-78); TOTAL CELLS COUNTED % (AUTO) 100 %; WHITE BLOOD COUNT 8.3 10^3/uL (4.0-10.5)
[2019-11-07 10:17] LABS: ANION GAP 9 (5-19); BLOOD UREA NITROGEN 21 mg/dL (7-20); CALCIUM 9.8 mg/dL (8.4-10.2); CARBON DIOXIDE 28 mmol/L (22-30); CHLORIDE 102 mmol/L (98-107); GLUCOSE 88 mg/dL (75-110); POTASSIUM 4.3 mmol/L (3.6-5.0)
--- NOTE | 2019-11-07 10:17 | RADIOLOGY REPORT (SQ) ---
EXAM DESCRIPTION: CT HEAD WITHOUT COMPLETED DATE/TIME: 11/07/2019 10:09 am REASON FOR STUDY: dizzy COMPARISON: None. TECHNIQUE: Axial images acquired through the brain without intravenous contrast. Images reviewed wi th bone, brain and subdural windows. Additional sagittal and coronal reconstructions were generated. Images stored on PACS. All CT scanners at this facility use dose modulation, iterative reconstruction, and/or weight based d osing when appropriate to reduce radiation dose to as low as reasonably achievable (ALARA). [facility]: Dose Right [facility]: CareDose [facility]: Dose Right [facility]: Teradose 4D [facility]: Approva RADIATION DOSE: CT Rad equipment meets quality standard of care and radiation dose reduction techniq ues were employed. CTDIvol: 53.2 mGy. DLP: 937 mGy-cm. mGy. LIMITATIONS: None. FINDINGS: VENTRICLES: Normal size and contour. CEREBRUM: No masses. No hemorrhage. No midline shift. No evidence for acute infarction. Normal gra y/white matter differentiation. No areas of low density in the white matter. CEREBELLUM: No masses. No hemorrhage. No alteration of density. No evidence for acute infarction. EXTRAAXIAL SPACES: No fluid collections. No masses. ORBITS AND GLOBE: No intra- or extraconal masses. Normal contour of globe without masses. CALVARIUM: No fracture. PARANASAL SINUSES: No fluid or mucosal thickening. SOFT TISSUES: No mass or hematoma. OTHER: No other significant finding. IMPRESSION: NORMAL BRAIN CT WITHOUT CONTRAST. EVIDENCE OF ACUTE STROKE: NO. COMMENT: Quality ID # [id number]: Final reports with documentation of one or more dose reduction techniques (e.g., Automated exposure control, adjustment of the mA and/or kV according to patient size, use of iterative reconstruction technique) TECHNICAL DOCUMENTATION: JOB ID: [id number] [employer]- All Rights Reserved Reading location - IP/workstation name: [email or web address]
[2019-11-07 12:46] VITALS: BP 137/79
--- NOTE | 2019-11-07 17:17 | EKG REPORT ---
SEVERITY:- BORDERLINE ECG - SINUS RHYTHM PROBABLE LEFT ATRIAL ABNORMALITY BORDERLINE R WAVE PROGRESSION, ANTERIOR LEADS : Confirmed by: Ella Oneill 07-Nov-2019 17:15:37
== END 2019-11-07 12:34 | disposition home or self-care (01) ==
LOC: ER 08:38
DX: H81.20 Vestibular neuronitis, unspecified ear (principal); H55.00 Unspecified nystagmus; R11.2 Nausea with vomiting, unspecified; R51 Headache; F17.210 Nicotine dependence, cigarettes, uncomplicated; I10 Essential (primary) hypertension; J44.9 Chronic obstructive pulmonary disease, unspecified; Z79.51 Long term (current) use of inhaled steroids; Z79.1 Long term (current) use of non-steroidal anti-inflammatories (NSAID); Z79.899 Other long term (current) drug therapy; Z88.0 Allergy status to penicillin; Z88.2 Allergy status to sulfonamides
CPT/HCPCS: 93005; 99284; 36415; 85025; 80048; 70450; 93010; A9270

== ENCOUNTER 2020-05-08 08:49 | Emergency (ER) | payer MEDICARE, OTHER ==
--- NOTE | 2020-05-08 11:16 | RADIOLOGY REPORT (SQ) ---
EXAM DESCRIPTION: FOOT LEFT COMPLETE IMAGES COMPLETED DATE/TIME: 05/08/2020 10:56 am REASON FOR STUDY: pain/trauma to toes COMPARISON: None. NUMBER OF VIEWS: Three views. TECHNIQUE: AP, lateral and oblique radiographic images acquired of the left foot. LIMITATIONS: None. FINDINGS: MINERALIZATION: Osteopenia. BONES: There is an acute comminuted extra-articular fracture of the 5th proximal phalanx. There is n o other fracture. JOINTS: The normal tarsometatarsal alignment is preserved. There are enthesophytes of the calculi ne ar insertion of the plantar fascia and Achilles tendon. SOFT TISSUES: Soft tissue swelling around the fracture 5th proximal phalanx. OTHER: No other finding. IMPRESSION: Acute comminuted extra-articular fracture of the 5th proximal phalanx. TECHNICAL DOCUMENTATION: JOB ID: [id number] 2010 [employer]- All Rights Reserved Reading location - IP/workstation name: [email or web address]
--- NOTE | 2020-05-08 11:26 | RADIOLOGY REPORT (SQ) ---
EXAM DESCRIPTION: L SPINE WHOLE IMAGES COMPLETED DATE/TIME: 05/08/2020 10:56 am REASON FOR STUDY: pain left back COMPARISON: None. NUMBER OF VIEWS: Five views including obliques. TECHNIQUE: AP, lateral, oblique, and sacral radiographic images acquired of the lumbar spine. LIMITATIONS: None. FINDINGS: MINERALIZATION: Normal. SEGMENTATION: There are 5 lumbar-type vertebral bodies. There is no transitional segment at the lumb osacral junction. ALIGNMENT: Mild compression deformity of the superior endplate of the L2 vertebral body. VERTEBRAE: Grade 1 retrolisthesis of L3 relative to L4 and grade 1 anterolisthesis of L4 relative to L5. DISCS: The intervertebral disc spaces from T12-L1 to L5-S1 are narrowed and there is associated endpl ate sclerosis and osteophyte formation. POSTERIOR ELEMENTS: Degenerative arthropathy of the the set joints from L1-L2 to L5-S1. There is no pars interarticularis defect. HARDWARE: None in the spine. PARASPINAL SOFT TISSUES: Atherosclerotic calcification of the abdominal aorta. PELVIS: Intact. OTHER: No other finding. IMPRESSION: 1. Mild age-indeterminate compression deformity of the superior endplate of the L2 verte bral body. If the patient is symptomatic consider correlation with a MRI or bone scan. 2. Degenerative spondylosis and facet arthropathy of the lumbar spine. TECHNICAL DOCUMENTATION: JOB ID: [id number] 2010 [employer]- All Rights Reserved Reading location - IP/workstation name: [email or web address]
[2020-05-08] MEDS ORDERED: HYDROCODONE/ACETAMINOPHEN 5-325 MG (6 TAB/ER DISP) PO PRN (11:58)
--- NOTE | 2020-05-08 12:05 | ER Document Report ---
Entered by BINDU TOBIAS SCRIBE 05/08/20 1007 Acting as scribe for:ROHITH CARPENTER MD ED General - General Chief Complaint: Back Pain Stated Complaint: COUGH,BACK PAIN,TOE/FOOT PAIN Time Seen by Provider: 05/08/20 09:11 Primary Care Provider: CHERRY LIMA MD [Primary Care Provider] - Follow up as needed Mode of Arrival: Ambulatory Information source: Patient Notes: This 65 year old female patient presents to the emergency department today with multiple complaints including foot pain and a cough. Patient reports that her left fifth toe pain has been present for the last 2 weeks "after cracking it". Patient states that she has also had a cough for the last 5 months. Patient does continue to smoke daily. TRAVEL OUTSIDE OF THE [place] IN LAST 30 DAYS: No - Related Data Allergies/Adverse Reactions: Penicillins Allergy (Verified 10/02/19 09:21) Sulfa (Sulfonamide Antibiotics) Allergy (Verified 10/02/19 09:21) Past Medical History - General Information source: Patient - Social History Smoking Status: Current Every Day Smoker Cigarette use (# per day): Yes Frequency of alcohol use: None Drug Abuse: None Lives with: Family Family History: Reviewed & Not Pertinent Patient has homicidal ideation: No - Past Medical History Cardiac Medical History: Reports: Hx Hypertension Pulmonary Medical History: Reports: Hx COPD GI Medical History: Reports: Hx Gastroesophageal Reflux Disease Musculoskeletal Medical History: Reports Hx Arthritis Traumatic Medical History: Reports: Hx Fractures - toes Past Surgical History: Reports: Hx Orthopedic Surgery - R and L shoulder, Hx Tubal Ligation, Other - Right hip replacement earlier this year Review of Systems - Review of Systems Constitutional: No symptoms reported EENT: No symptoms reported Cardiovascular: No symptoms reported Respiratory: See HPI, Cough Gastrointestinal: No symptoms reported Genitourinary: No symptoms reported Female Genitourinary: No symptoms reported Musculoskeletal: See HPI, Back pain, Joint pain Skin: No symptoms reported Hematologic/Lymphatic: No symptoms reported Neurological/Psychological: No symptoms reported -: Yes All other systems reviewed and negative Physical Exam - Vital signs Vitals: Temp 98.4 F 05/08/20 09:02 - Notes Notes: Physical Exam: General: Alert. HEENT: Normocephalic. Atraumatic. PERRL. Extraocular movements intact. Oropharynx clear. Neck: Supple. Non-tender. Respiratory: No respiratory distress. Clear and equal breath sounds bilaterally. Cardiovascular: Regular rate and rhythm. Abdominal: Normal Inspection. Non-tender. No distension. Normal Bowel Sounds. Back: Paralumbar musculature tenderness with palpation. Extremities: Moves all four extremities. Upper extremities: Normal inspection. Normal ROM. Lower extremities: Tenderness with palpation and associated swelling to the left fifth digit dorsally. Neurological: Normal cognition. AAOx4. Normal speech. Psychological: Normal affect. Normal Mood. Skin: Warm. Dry. Normal color. Course - Re-evaluation Re-evalutation: 05/08/20 11:58 Patient still complaining of pain in her back as well as pain in her left fifth toe. - Vital Signs Vital signs: Temp Pulse Resp BP Pulse Ox 98.4 F 92 18 148/66 H 93 05/08/20 09:07 05/08/20 09:07 05/08/20 09:07 05/08/20 09:07 05/08/20 09:07 05/08/20 11:58 Vital signs stable - Diagnostic Test Radiology reviewed: Image reviewed, Reports reviewed Radiology results interpreted by me: 05/08/20 11:59 LS-spine shows an indeterminate compression fracture of L2 superior endplate. No other acute process other than some facet arthropathy. 05/08/20 11:59 Left foot shows a nondisplaced fracture of the proximal phalanx on the fifth toe. Discharge - Discharge Clinical Impression: Toe fracture, left, Compression fracture of L2 lumbar vertebra, Chronic cough Condition: Stable Disposition: HOME, SELF-CARE Instructions: Oral Narcotic Medication ([facility]), Low Back Pain ([facility]) Additional Instructions: Dr. Carpenter speaking fracture You have a fracture. The typical broken bone requires only protection and sufficient time for healing. "Setting" is necessary only if the bones are crooked or out of position. The physician will re-assess you periodically to make certain that the bone heals without complications. It's important that you follow the instructions given you. The initial treatment is immobilization, elevation of the injury, and cold packs. Not all fractures require a cast. Depending on the location and type of fracture, immobilization may consist of a splint, cast, sling, bulky dressing, or simply rest. The length of time required for healing depends on the location and type of fracture, and on the age of the patient. The treatment plan the physician has outlined for you is customized to your fracture and health condition. Call the doctor or return at once if pain becomes severe, or if severe swelling or numbness develop. You have an subacute fracture of your fifth toe on the left foot. You are receiving rylee tape and a postop shoe to go home with along with pain medication he also have a indeterminate age lumbar 2 vertebral body compression fracture of the superior endplate. Again you will be placed on pain medications to follow-up and to follow-up with Dr. Guadarrama, orthopedic physician. Prescriptions: Hydrocodone/Acetaminophen [Cuttyhunk 5-325 mg Tabs (6 Tab/ER Disp)] 1 tab PO BID PRN 6 Days #12 tab PRN Reason: For Pain Referrals: CHERRY LIMA MD [Primary Care Provider] - Follow up as needed LEXI GUADARRAMA MD [ACTIVE STAFF] - Follow up as needed I personally performed the services described in the documentation, reviewed and edited the documentation which was dictated to the scribe in my presence, and it accurately records my words and actions.
[2020-05-08 12:17] VITALS: BP 145/70
== END 2020-05-08 12:17 | disposition home or self-care (01) ==
LOC: ER 08:49
DX: S92.512A Displaced fracture of proximal phalanx of left lesser toe(s), initial encounter for closed fracture (principal); M48.56XA Collapsed vertebra, not elsewhere classified, lumbar region, initial encounter for fracture; R05 Cough; X58.XXXA Exposure to other specified factors, initial encounter; F17.210 Nicotine dependence, cigarettes, uncomplicated; I10 Essential (primary) hypertension; J44.9 Chronic obstructive pulmonary disease, unspecified; Z88.2 Allergy status to sulfonamides; Z88.0 Allergy status to penicillin; Z96.641 Presence of right artificial hip joint
CPT/HCPCS: 99283; 73630; 72110; A9270

== ENCOUNTER → 2020-05-22 | Outpatient (CLI) | payer MEDICARE, OTHER ==
--- NOTE | 2020-05-22 14:42 | WOMENS IMAGING REPORT ---
EXAM DESCRIPTION: BONE DENSITY HIP/SPINE IMAGES COMPLETED DATE/TIME: 05/22/2020 2:15 pm REASON FOR STUDY: M81.0 AGE-RELATED OSTEOPOROSIS W/O CURRENT PATHOLOGICAL FRACTURE Z12.31 ENCNTR SC REEN MAMMOGRAM FOR MALIGNANT NEOPLASM OF TERRELL M81.0 AGE-RELATED OSTEOPOROSIS W/O CURRENT PATHOLOGICAL FRAC COMPARISON: None. TECHNIQUE: Dual-Energy X-ray Absorptiometry (DEXA) of the AP Spine and Hip. LIMITATIONS: None. FINDINGS: LUMBAR SPINE: The bone mineral density (BMD) measured from L1-L4 in the AP projection correlates with a T-score of -1.1, which is osteopenia as defined by the World Health Organization. BMD Change vs Baseline: N/A HIP: The bone mineral density (BMD) measured in the left hip correlates with a T-score of -2.4, which is o steopenia as defined by the World Health Organization. BMD Change vs Baseline: N/A 10 year Fracture Risk Assessment: Major Osteoporotic Fracture: Not available. Hip Fracture: Not available. IMPRESSION: 1. LUMBAR SPINE WHO CLASSIFICATION: OSTEOPENIA. 2. HIP WHO CLASSIFICATION: OSTEOPENIA. OVERALL ASSESSMENT: WHO CLASSIFICATION: OSTEOPENIA. COMMENT: The World Health Organization defines low BMD as follows: T-score: Normal: At or above -1.0 Osteopenia: Between -1.0 and -2.5 Osteoporosis: At or below -2.5 without fractures Established osteoporosis: At or below -2.5 with fractures In general, you may wish to consider: Diagnosis Treatment Follow-up DEXA Normal BMD Prevention 2-3 years Osteopenia Prevention/Therapy 1-2 years Osteoporosis Therapy Yearly TECHNICAL DOCUMENTATION: JOB ID: [id number] [employer]- All Rights Reserved Reading location - IP/workstation name: [email or web address]
--- NOTE | 2020-05-22 15:04 | WOMENS IMAGING REPORT ---
EXAM DESCRIPTION: 3D SCREENING MAMMO BILAT IMAGES COMPLETED DATE/TIME: 05/22/2020 2:15 pm REASON FOR STUDY: Z12.31 ENCNTR SCREEN MAMMOGRAM FOR MALIGNANT NEOPLASM OF BREAST Z12.31 ENCNTR SCR EEN MAMMOGRAM FOR MALIGNANT NEOPLASM OF TERRELL M81.0 AGE-RELATED OSTEOPOROSIS W/O CURRENT PATHOLOGICAL FRAC COMPARISON: None. EXAM PARAMETERS: Views: Standard craniocaudal and mediolateral oblique views of each breast recorded using digital acquisition and breast tomosynthesis. Read with the assistance of CAD. .[facility] - [employer] Operations Manager Version 9.2 LIMITATIONS: None. FINDINGS: No suspicious masses, suspicious calcifications or architectural distortion. No areas of c oncern. IMPRESSION: NEGATIVE MAMMOGRAM. BIRADS 1. BREAST DENSITY: b. There are scattered areas of fibroglandular density. BIRAD: ASSESSMENT: 1 NEGATIVE RECOMMENDATION: ROUTINE SCREENING COMMENT: The patient has been notified of the results by letter per MQSA requirements. Additional no tification policies are in place for contacting patient with suspicious or incomplete findings. Quality ID #[id number]: The [employer] recommends an annual screening mammogram for women aged 40 years or over. This facility utilizes a reminder system to ensure that all patients receive reminder letters, and/or direct phone calls for appointments. This includes reminders for routine scr eening mammograms, diagnostic mammograms, or other Breast Imaging Interventions when appropriate. Th is patient will be placed in the appropriate reminder system. TECHNICAL DOCUMENTATION: FINDING NUMBER: (1) ASSESSMENT: (1) JOB ID: [id number] 2010 [employer]- All Rights Reserved Reading location - IP/workstation name: [email or web address]
== END ==
LOC: WI 13:42
PROVIDERS: ATTEND Internal Medicine
DX: Z12.31 Encounter for screening mammogram for malignant neoplasm of breast (principal); M81.0 Age-related osteoporosis without current pathological fracture
CPT/HCPCS: 77063; 77067; 77080

== ENCOUNTER → 2020-08-15 | Outpatient (CLI) | payer MEDICARE, OTHER ==
[2020-08-15 14:54] LABS: ABSOLUTE BASOPHILS # (AUTO) 0.1 10^3/uL (0.0-0.2); ABSOLUTE EOSINOPHILS # (AUTO) 0.1 10^3/uL (0.0-0.6); ABSOLUTE LYMPHOCYTES (AUTO) 1.4 10^3/uL (0.5-4.7); ABSOLUTE MONOCYTES (AUTO) 0.6 10^3/uL (0.1-1.4); ABSOLUTE NEUT (AUTO) 5.4 10^3/uL (1.7-8.2); BASOPHILS % (AUTO) 1.2 % (0-2); EOSINOPHILS % (AUTO) 0.9 % (0-6); HEMATOCRIT 37.2 % (36.0-47.0); HEMOGLOBIN 13.1 g/dL (12.0-15.5); LYMPHOCYTES % (AUTO) 19.1 % (13-45); MEAN CORPUSCULAR HEMOGLOBIN 34.3 pg (27.0-33.4); MEAN CORPUSCULAR HGB CONC 35.2 g/dL (32.0-36.0); MEAN CORPUSCULAR VOLUME 98 fl (80-97); MONOCYTES % (AUTO) 7.8 % (3-13); PLATELET COUNT 379 10^3/uL (150-450); RED BLOOD COUNT 3.81 10^6/uL (3.72-5.28); RED CELL DISTRIBUTION WIDTH 13.8 % (11.5-14.0); TOTAL CELLS COUNTED % (AUTO) 100 %; WHITE BLOOD COUNT 7.6 10^3/uL (4.0-10.5)
== END ==
LOC: OD 13:02
PROVIDERS: ATTEND Internal Medicine
DX: K92.1 Melena (principal)
CPT/HCPCS: 36415; 85025

== ENCOUNTER → 2020-08-24 | Outpatient (CLI) | payer MEDICARE, OTHER ==
[2020-08-24 17:23] LABS: MEAN CORPUSCULAR HEMOGLOBIN 33.6 pg (27.0-33.4); MEAN CORPUSCULAR HGB CONC 34.2 g/dL (32.0-36.0); MEAN CORPUSCULAR VOLUME 98 fl (80-97); PLATELET COUNT 410 10^3/uL (150-450); RED BLOOD COUNT 3.86 10^6/uL (3.72-5.28); RED CELL DISTRIBUTION WIDTH 13.7 % (11.5-14.0); WHITE BLOOD COUNT 7.9 10^3/uL (4.0-10.5)
[2020-08-24 17:43] LABS: ALBUMIN 4.1 g/dL (3.5-5.0); ALKALINE PHOSPHATASE 78 U/L (38-126); ASPARTATE AMINO TRANSFERASE 16 U/L (14-36); BILIRUBIN,DIRECT 0.3 mg/dL (0.0-0.4); BILIRUBIN,TOTAL 0.4 mg/dL (0.2-1.3); TOTAL PROTEIN 6.5 g/dL (6.3-8.2)
== END ==
LOC: OD 16:53
PROVIDERS: ATTEND Internal Medicine Gastroenterology
DX: R10.13 Epigastric pain (principal)
CPT/HCPCS: 36415; 80076; 83690; 85027